=== PATIENT | male | born 1960 | race American Indian/Alaskan Native ===

== ENCOUNTER 2021-09-08 07:18 | Emergency (ER) | payer BC ==
[2021-09-08 07:29] VITALS: BP 159/93
--- NOTE | 2021-09-08 09:18 | Emergency Department Report ---
ED Extremity Problem HPI - General Chief complaint: Extremity Injury, Lower Stated complaint: BOTH FEET SWOLLEN Time Seen by Provider: 09/08/21 09:03 Source: patient Mode of arrival: Ambulatory Limitations: No Limitations - History of Present Illness Initial comments: 61-year-old male presents to the ER today with complaints of bilateral ankle and feet pain. Patient states that symptoms started about 1 month ago. Patient states that initially was just his left ankle but now it is the left foot and the right ankle and right foot. He states that in the right foot is mainly around the first MTP joint and the base of the fifth metatarsal bone. He reports intermittent swelling to his feet and ankle. He states that he was told once a few years back that he did have gout. He is not any daily maintenance medication for gout. He states that the pain is worse with movement of the ankle and foot and with ambulation. He denies any recent injury to his ankle or his foot. He denies any apparent redness or bruising, numbness or tingling or any additional symptoms at this time. He states that over the past month he has not been taking anything for the pain. MD Complaint: joint swelling, joint paint -: month(s) (1) - Related Data Previous Rx's Medication Instructions Recorded Last Taken Type Diclofenac 1% [Diclofenac 1% 2 gm TP QID PRN #2 tube 09/08/21 Unknown Rx topical gel] methylPREDNISolone [Medrol 4MG 4 mg PO DAILY #1 pack 09/08/21 Unknown Rx DOSEPAK (21 tabs)] Allergies Allergy/AdvReac Type Severity Reaction Status Date / Time shrimp Allergy Swelling Uncoded 09/20/14 01:30 ED Review of Systems ROS: Stated complaint: BOTH FEET SWOLLEN Other details as noted in HPI Comment: All other systems reviewed and negative Respiratory: denies: cough, shortness of breath, wheezing Cardiovascular: denies: chest pain, palpitations Musculoskeletal: joint swelling, arthralgia Neurological: denies: headache, weakness, paresthesias Psychiatric: denies: anxiety, depression Hematological/Lymphatic: denies: easy bleeding, easy bruising ED Past Medical Hx - Past Medical History Previous Medical History?: No - Surgical History Past Surgical History?: Yes Additional Surgical History: R leg surgery - Social History Smoking Status: Never Smoker - Medications Home Medications: Home Medications Medication Instructions Recorded Confirmed Last Taken Type Diclofenac 1% [Diclofenac 1% 2 gm TP QID PRN #2 tube 09/08/21 Unknown Rx topical gel] methylPREDNISolone [Medrol 4MG 4 mg PO DAILY #1 pack 09/08/21 Unknown Rx DOSEPAK (21 tabs)] ED Physical Exam - General Limitations: No Limitations General appearance: alert, in no apparent distress - Head Head exam: Present: atraumatic, normocephalic, normal inspection - Neck Neck exam: Present: normal inspection, full ROM - Respiratory Respiratory exam: Absent: respiratory distress - Cardiovascular Cardiovascular Exam: Present: regular rate - Expanded Lower Extremity Exam Right Ankle exam: Present: normal inspection, full ROM. Absent: tenderness, swelling, abrasion, laceration, ecchymosis, deformity, dislocation, erythema, anterior draw sign Foot/Toe exam: Present: normal inspection, full ROM, tenderness (Base of the fifth metatarsal and the first MTP joint), tenderness at base of 5th metatarsal. Absent: swelling, abrasion, laceration, ecchymosis, deformity, crepidus, dislocation, erythema, amputation, puncture wound, foreign body, calcaneal tenderness, nail avulsion, subungual hematoma Neuro vascular tendon exam: Present: no vascular compromise. Absent: abnormal cap refill, motor deficit, sensory deficit, tendon deficit Gait: Positive: observed and normal Left Ankle exam: Present: normal inspection, full ROM. Absent: tenderness, swelling, abrasion, laceration, ecchymosis, deformity, crepidus, dislocation, erythema, anterior draw sign Foot/Toe exam: Present: normal inspection, full ROM. Absent: tenderness, swelling, abrasion, laceration, ecchymosis, deformity, crepidus, dislocation, erythema, amputation, puncture wound, foreign body, calcaneal tenderness, tenderness at base of 5th metatarsal, nail avulsion, subungual hematoma Neuro vascular tendon exam: Present: no vascular compromise. Absent: abnormal cap refill, motor deficit, sensory deficit, tendon deficit Gait: Positive: observed and normal - Neurological Exam Neurological exam: Present: alert, oriented X3, CN II-XII intact, normal gait - Psychiatric Psychiatric exam: Present: normal affect, normal mood - Skin Skin exam: Present: intact ED Course Vital Signs 09/08/21 07:23 Temperature 98.3 F Pulse Rate 63 Respiratory 16 Rate Blood Pressure 159/93 O2 Sat by Pulse 99 Oximetry Critical care attestation.: If time is entered above; I have spent that time in minutes in the direct care of this critically ill patient, excluding procedure time. ED Disposition Clinical Impression: Pain, joint, ankle and foot, History of gout Disposition: HOME / SELF CARE / HOMELESS Is pt being admited?: No Does the pt Need Aspirin: No Condition: Stable Instructions: Joint Pain, [id number] Additional Instructions: I recommend that you take the Medrol Dosepak and use the Voltaren gel as prescribed. I do recommend that you follow-up with Ortho and/or firebrick and refractory tile repairer for further evaluation of his symptoms. Return to the ER if worse. Prescriptions: Diclofenac 1% [Diclofenac 1% topical gel] 2 gm TP QID PRN #2 tube PRN Reason: Pain methylPREDNISolone [Medrol 4MG DOSEPAK (21 tabs)] 4 mg PO DAILY #1 pack Referrals: ELAINA COTAS MD [Primary Care Provider] - 3-5 Days GLORY DIXON MD [Staff Physician] - 3-5 Days RAHUL CHEN DPM [Staff Physician] - 3-5 Days Time of Disposition: 09:21
== END 2021-09-08 10:02 | disposition home or self-care (01) ==
LOC: ED 07:18
DX: M25.571 Pain in right ankle and joints of right foot (principal); M25.572 Pain in left ankle and joints of left foot; M10.9 Gout, unspecified
CPT/HCPCS: 99282